=== PATIENT | female | born 1970 | race Caucasian/White ===

== ENCOUNTER 2021-11-10 20:47 | Emergency (ER) | payer OTHER ==
[~2021-11-10] VITALS: Ht 154.9 cm; Wt 76.0 kg
[~2021-11-10 20:47] MED LIST: ADVIL200 MG PO; DAYPRO600 MG PO; LORTAB 7.5-5001 EACH PO; ROBAXIN500 MG PO
== END 2021-11-10 22:55 | disposition home or self-care (01) ==
LOC: ED 20:47
DX: M25.532 Pain in left wrist (principal); S80.212A Abrasion, left knee, initial encounter; M89.9 Disorder of bone, unspecified; E11.9 Type 2 diabetes mellitus without complications; W18.09XA Striking against other object with subsequent fall, initial encounter; Z88.5 Allergy status to narcotic agent; Z88.8 Allergy status to other drugs, medicaments and biological substances
CPT/HCPCS: 73110; 73560; A9270